=== PATIENT | female | born 2000 | race Caucasian/White ===

== ENCOUNTER 2020-05-23 17:38 | Emergency (ER) | payer OTHER ==
[~2020-05-23] VITALS: Ht 167.6 cm; Wt 62.7 kg
--- NOTE | 2020-05-23 20:33 | NUR ---
AWAITING STOOL SAMPLE RESULTS. PT REMAINS IN BED, NADN. ALL NEEDS MET AT THIS TIME.
[2020-05-23 21:37] LABS: CLOSTRIDIUM DIFFICILE ANTIGEN POSITIVE; CLOSTRIDIUM DIFFICILE TOXIN NEGATIVE (Negative)
[2020-05-23 21:38] VITALS: BP 110/64
--- NOTE | 2020-05-23 21:47 | NUR ---
PT REMAINS IN BED, NADN, ALL NEEDS MET.
[2020-05-23] MEDS ORDERED: VANCOMYCIN 50 MG/ML ORAL SUSP PO ONE (22:00)
== END 2020-05-23 22:24 | disposition home or self-care (01) ==
LOC: ED 22:00
DX: A04.72 Enterocolitis due to Clostridium difficile, not specified as recurrent (principal)
CPT/HCPCS: 87324; 99283; J3370